=== PATIENT | female | born 1985 | race Hispanic/Latino ===

== ENCOUNTER 2020-08-22 09:47 | Emergency (ER) | payer SELFPAY ==
[2020-08-22] MEDS ORDERED: diphenhydrAMINE 50 MG CAP ONE (10:13)
[2020-08-22] MEDS ORDERED: Famotidine 20 MG TAB ONE (10:13)
[2020-08-22] MEDS ORDERED: Dexamethasone 10 MG/ML VIAL ONE (10:13)
== END 2020-08-22 13:07 | disposition home or self-care (01) ==
LOC: ERS 09:47
DX: L20.9 Atopic dermatitis, unspecified (principal)
CPT/HCPCS: 36415; 85652; 86140; 99283; J1100

== ENCOUNTER 2021-11-30 17:30 | Emergency (ER) | payer SELFPAY | END 2021-11-30 18:07 | disposition home or self-care (01) | LOC: ERS 17:30 | DX: B34.9 Viral infection, unspecified (principal); Z20.822 Contact with and (suspected) exposure to COVID-19 | CPT/HCPCS: 99283 ==